=== PATIENT | male | born 1985 | race Caucasian/White ===

== ENCOUNTER 2019-07-01 22:59 | Emergency (ER) | payer OTHER ==
[~2019-07-01] VITALS: Ht 188 cm; Wt 122.6 kg
[~2019-07-01 22:59] MED LIST: ALPR0.5T7 PO; ESCI10TA10 PO
[2019-07-01 23:01] VITALS: BP 163/112
--- NOTE | 2019-07-01 23:17 | NUR ---
PT C/O PANICK ATTACK AROUND 0 TONIGHT. HX OF SAME. PT RAN OUT OF ANXIETY MEDS. PT SITTING ON SIDE OF BED DEEP BREATHING. MD AT BEDSIDE. AWAITING ORDERS AT THIS TIME.
== END 2019-07-01 23:41 | disposition home or self-care (01) ==
LOC: ED 23:35
DX: F41.1 Generalized anxiety disorder (principal); I10 Essential (primary) hypertension; J45.909 Unspecified asthma, uncomplicated
CPT/HCPCS: 93005; 99283

== ENCOUNTER 2021-03-19 21:47 | Emergency (ER) | payer OTHER ==
[~2021-03-19] VITALS: Ht 185.4 cm; Wt 120.3 kg
[2021-03-19 22:05] VITALS: BP 161/101
[2021-03-19] MEDS ORDERED: LORazepam 1MG TABLET PO ONE (22:30)
--- NOTE | 2021-03-19 23:00 | NUR ---
PT LEFT AMA. PAPERWORK SIGNED
== END 2021-03-19 23:02 | disposition left against medical advice (07) ==
LOC: ED 22:00
DX: F41.9 Anxiety disorder, unspecified (principal)
CPT/HCPCS: 99283